=== PATIENT | female | born 2000 | race Two or more races ===

== ENCOUNTER 2024-01-12 09:44 | Emergency (ER) | payer OTHER ==
[2024-01-12 09:50] VITALS: BMI 34.2
[2024-01-12 10:48] LABS: RETICULOCYTES 1.29 % (0.5-1.5)
[2024-01-12 11:52] LABS: EPI CELLS 34 /uL (0-25.1); HYALINE CASTS 1 /uL (0-3.1); URINE APPEARANCE CLEAR; URINE BACTERIA 835 /uL (0-1359); URINE BILIRUBIN NEGATIVE (NEGATIVE); URINE COLOR YELLOW; URINE GLUCOSE (UA) NEGATIVE (NEGATIVE); URINE KETONE NEGATIVE (NEGATIVE); URINE LEUK ESTERASE 3+ (NEGATIVE); URINE NITRITE NEGATIVE (NEGATIVE); URINE PROTEIN NEGATIVE (NEGATIVE); URINE RBC 8 /uL (0-23.9); URINE UROBILINOGEN 0.2 mg/dL (0.2-1.0); URINE WBC 84 /uL (0-25.8)
[2024-01-12 11:54] LABS: URIC ACID 4.2 mg/dL (2.6-7.2)
[2024-01-12 12:41] VITALS: BP 113/67; PULSE 87; RESP 20; TEMP 97.7
[2024-01-12 15:20] LABS: BASO % 0.3 % (0-2.0); EOS % 0.5 % (0-4.5); HEMATOCRIT 36.2 % (32.4-45.2); HEMOGLOBIN 12.2 GM/dL (10.7-15.3); LYMPH % 17.9 % (8-40); MCH 28.2 pg (25.7-33.7); MCHC 33.6 g/dl (32.0-36.0); MEAN CELL VOLUME 83.8 fl (80-96); MEAN PLT VOLUME 8.6 fl (7.5-11.1); MONO % 6.3 % (3.8-10.2); PLATELET COUNT 324 10^3/uL (134-434); RBC 4.32 M/mm3 (3.60-5.2); RDW 14.1 % (11.6-15.6); WHITE BLOOD COUNT 10.1 K/mm3 (4.0-10.0)
== END 2024-01-12 16:00 | disposition home or self-care (01) ==
LOC: JER 09:44
DX: O26.613 Liver and biliary tract disorders in pregnancy, third trimester (principal); R79.89 Other specified abnormal findings of blood chemistry; Z3A.36 36 weeks gestation of pregnancy
CPT/HCPCS: 36415; 81003; 82570; 82977; 83010; 84156; 84450; 84460; 84550; 85025; 85032; 85045; 99283-25

== ENCOUNTER 2024-01-23 09:30 | Inpatient (IN) | payer OTHER ==
[2024-01-23] MEDS: LACTATED RINGERS SOLUTION 500 ML IV ONE (12:10)
[2024-01-23] MEDS: LACTATED RINGERS SOLUTION 500 ML IV SCH (13:05)
[2024-01-23] MEDS: ELECTROLYTE-148 SOLN 1,000 ML IV SCH (15:00)
[2024-01-23] MEDS ORDERED: TERBUTALINE SULFATE 1 MG/1 ML VIAL SQ ONE (15:13)
[2024-01-23] MEDS: TERBUTALINE SULFATE 1 MG/1 ML VIAL SQ ONE (15:20)
[2024-01-23] MEDS: CITRIC ACID/SODIUM CITRATE 30 ML UNIT-DOSE CUP PO ONE (16:10)
[2024-01-23 16:12] VITALS: BMI 32.7
[2024-01-23 16:23] LABS: BASO % 0.3 % (0-2.0); EOS % 0.2 % (0-4.5); HEMATOCRIT 36.6 % (32.4-45.2); HEMOGLOBIN 12.1 GM/dL (10.7-15.3); LYMPH % 23.3 % (8-40); MCHC 33.1 g/dl (32.0-36.0); MEAN CELL VOLUME 84.6 fl (80-96); MEAN PLT VOLUME 8.7 fl (7.5-11.1); MONO % 6.9 % (3.8-10.2); NEUT % 69.3 % (42.8-82.8); PLATELET COUNT 273 10^3/uL (134-434); RBC 4.33 M/mm3 (3.60-5.2); RDW 14.4 % (11.6-15.6); WHITE BLOOD COUNT 11.7 K/mm3 (4.0-10.0)
[2024-01-23 16:25] LABS: INR 0.86 (0.83-1.09); PROTHROMBIN TIME (PATIENT) 9.8 SEC (9.7-13.0)
[2024-01-23 16:27] LABS: ACTIVATED PTT 26.5 SECONDS (25.2-36.5)
[2024-01-23 16:36] LABS: POTASSIUM 3.1 mmol/L (3.5-5.1)
[2024-01-23 16:37] LABS: CALCIUM 9.5 mg/dL (8.5-10.1)
[2024-01-23 16:38] LABS: BLOOD UREA NITROGEN 10.9 mg/dL (7-18)
[2024-01-23 16:41] LABS: CREATININE 0.6 mg/dL (0.55-1.3)
[2024-01-23] MEDS ORDERED: ONDANSETRON 4 MG/2 ML VIAL ONE (16:58)
[2024-01-23] MEDS ORDERED: FENTANYL CITRATE/PF 50 MCG/ML VIAL ONE (16:58)
[2024-01-23] MEDS ORDERED: KETOROLAC TROMETHAMINE 30 MG/1 ML VIAL ONE (16:58)
[2024-01-23] MEDS ORDERED: OXYTOCIN 10 UNITS/ML VIAL ONE (16:58)
[2024-01-23] MEDS ORDERED: PHENYLEPHRINE HCL 10 MG/1 ML SINGLE DOSE VIAL ONE (16:58)
[2024-01-23] MEDS ORDERED: ceFAZolin SODIUM 1 GM VIAL ONE (16:58)
[2024-01-23] MEDS ORDERED: morphine SULFATE/PF 1 MG/2 ML (2cc Syringe - QUVA) ONE (16:58)
[2024-01-23 17:04] LABS: SYPHILIS W/ RPR CONF NON-REACTIVE (NONREACTIVE)
[2024-01-23 17:32] LABS: HIV INTERPRETATION NEGATIVE (NEGATIVE)
[2024-01-23] MEDS ORDERED: ACETAMINOPHEN 325 MG TABLET (FP) PO PRN (19:06)
[2024-01-23] MEDS ORDERED: METHYLERGONOVINE MALEATE 0.2 MG/1 ML AMP IM PRN (19:06)
[2024-01-23 19:30] LABS: CORD HCO3 24.3 mmHg (20-29); CORD PCO2 53.9 mmHg (30-78); CORD pH 7.271 (7.14-7.44)
[2024-01-23 19:33] LABS: CORD BASE EXCESS -3.7 mmol/L (0-2); CORD HCO3 21.8 mmHg (20-29); CORD PCO2 40.8 mmHg (30-78); CORD pH 7.345 (7.14-7.44)
[2024-01-23] MEDS ORDERED: ONDANSETRON 4 MG/2 ML VIAL IVPUSH PRN (19:59)
[2024-01-23] MEDS ORDERED: ACETAMINOPHEN INJECTION 100 ML IVPB ONE (21:10)
[2024-01-23] MEDS ORDERED: OXYTOCIN 20 UNITS in 0.9% NS 20 UNIT/1,000 ML INFUS.BAG IV ONE (21:10)
[2024-01-23] MEDS: ACETAMINOPHEN 1000 MG/100 ML BAG IVPB PRN (21:12)
[2024-01-23] MEDS: OXYTOCIN 20 UNITS in 0.9% NS 20 UNIT/1,000 ML INFUS.BAG IV SCH (21:12)
[2024-01-24 06:48] LABS: BASO % 0.5 % (0-2.0); EOS % 0.2 % (0-4.5); HEMATOCRIT 33.5 % (32.4-45.2); HEMOGLOBIN 11.4 GM/dL (10.7-15.3); LYMPH % 7.3 % (8-40); MCH 28.4 pg (25.7-33.7); MCHC 33.8 g/dl (32.0-36.0); MEAN CELL VOLUME 83.8 fl (80-96); MEAN PLT VOLUME 8.4 fl (7.5-11.1); MONO % 7.4 % (3.8-10.2); NEUT % 84.6 % (42.8-82.8); PLATELET COUNT 250 10^3/uL (134-434); RDW 14.4 % (11.6-15.6); WHITE BLOOD COUNT 13.1 K/mm3 (4.0-10.0)
[2024-01-24] MEDS ORDERED: oxyCODONE HCL 5 MG TABLET PO PRN ×2 (07:06)
[2024-01-24 07:07] LABS: POTASSIUM 4.1 mmol/L (3.5-5.1)
[2024-01-24 07:10] LABS: CALCIUM 8.3 mg/dL (8.5-10.1)
[2024-01-24 07:11] LABS: BLOOD UREA NITROGEN 5.8 mg/dL (7-18)
[2024-01-24 07:14] LABS: CREATININE 0.4 mg/dL (0.55-1.3)
[2024-01-24 07:15] LABS: BILIRUBIN,TOTAL 0.6 mg/dL (0.2-1); TOT PROT 4.9 g/dl (6.4-8.2)
[2024-01-24 10:52] LABS: POC NITRAZINE NEG
[2024-01-24] MEDS: SIMETHICONE 80 MG TAB.CHEW (FP) PO PRN (13:37)
[2024-01-24] MEDS: IBUPROFEN 600 MG TABLET (FP) PO PRN (13:37)
[2024-01-24] MEDS ORDERED: BISACODYL 10 MG SUPP.RECT RC PRN (19:06)
[2024-01-25 13:59] VITALS: RESP 18
[2024-01-25 23:42] VITALS: TEMP 98.7
[2024-01-26 06:36] LABS: BASO % 0.5 % (0-2.0); EOS % 2.2 % (0-4.5); HEMATOCRIT 32.7 % (32.4-45.2); HEMOGLOBIN 10.7 GM/dL (10.7-15.3); LYMPH % 21.7 % (8-40); MCH 27.7 pg (25.7-33.7); MCHC 32.8 g/dl (32.0-36.0); MEAN CELL VOLUME 84.5 fl (80-96); MEAN PLT VOLUME 8.2 fl (7.5-11.1); MONO % 9.1 % (3.8-10.2); NEUT % 66.5 % (42.8-82.8); PLATELET COUNT 314 10^3/uL (134-434); RBC 3.87 M/mm3 (3.60-5.2); RDW 14.8 % (11.6-15.6); WHITE BLOOD COUNT 10.4 K/mm3 (4.0-10.0)
[2024-01-26 11:06] VITALS: BP 104/68; PULSE 91
== END 2024-01-26 17:37 | disposition home or self-care (01) | DRG 540 ==
LOC: JDEL 09:30 → JLDR 15:30 → J3W 21:40
PROVIDERS: ADMIT Family Medicine; ATTEND Family Medicine
PROC: 10D00Z1 Extraction of Products of Conception, Low, Open Approach (ICD-10-PCS; principal; 2024-01-23)
DX: O34.211 Maternal care for low transverse scar from previous cesarean delivery (principal); Z3A.38 38 weeks gestation of pregnancy; Z37.0 Single live birth
CPT/HCPCS: 36415; 36600; 80048; 80053; 82803; 83986-QW; 85025; 85610; 85730; 86780; 86850; 86900; 86901; 87389; 88307-TC; 94010; J0131